=== PATIENT | male | born 1955 | race Caucasian/White ===

== ENCOUNTER → 2020-10-31 | Outpatient (CLI) | payer OTHER ==
--- NOTE | 2020-10-31 12:54 | REP ---
INDICATION: RT HYDROCELE. COMPARISON: None. TECHNIQUE: Real-time sonographic evaluation of scrotum and contents performed. FINDINGS: The testicles are normal in size and echotexture, right testicle measuring 4.4 x 3.1 x 3.1 cm and left testicle 4.6 x 2.5 x 2.8 cm. A punctate calcification is seen in the right testicle. There is no testicular mass or torsion, blood flow is seen in each testicle with duplex Doppler evaluation. There is a very large right hydrocele present. A small left hydrocele is noted. The right epididymis could not be visualized due to the large hydrocele. There is mildly increased Doppler color flow within the left testicle compared to the right which may indicate an element of orchitis. IMPRESSION: Very large right hydrocele. Small left hydrocele. Possible left orchitis. <Electronically signed by Oscar Curiel > 10/31/20 [id number]
== END ==
LOC: M RAD 12:08
PROVIDERS: ATTEND Urology
DX: N43.3 Hydrocele, unspecified (principal)

== ENCOUNTER → 2020-11-20 | Outpatient (CLI) | payer OTHER ==
[~2020-11-20] MED LIST: DIGO0.253; DILT30TA; ELIQ5TAB; ENTR1TAB7; FENO160T10; METF500T13; METO200T28; SIMV20TA22; SPIR-10
== END ==
LOC: M LABSMTC 11:22
PROVIDERS: ATTEND Anesthesiology
DX: Z01.818 Encounter for other preprocedural examination (principal); Z11.52 Encounter for screening for COVID-19

== ENCOUNTER 2020-11-24 06:11 | Day surgery (SDC) | payer OTHER ==
[~2020-11-24] VITALS: Ht 167.6 cm; Wt 78.0 kg
[~2020-11-24 06:11] MED LIST changes: +LIDOCAINE 1% MDV 20ML VIAL SQ PRN
[2020-11-24] MEDS ORDERED: LIDOCAINE 2% 100MG/5ML SDV (FOR ANES.) As Ordered ONE (07:07)
[2020-11-24] MEDS ORDERED: propofoL 200 MG/20 ML VIAL As Ordered ONE (07:07)
[2020-11-24] MEDS ORDERED: ROCURONIUM BROMIDE 50 MG/5 ML VIAL As Ordered ONE (07:07)
[2020-11-24] MEDS ORDERED: fentaNYL 100 MCG/2 ML INJECTION (J3010) As Ordered ONE (07:08)
[2020-11-24] MEDS ORDERED: MIDAZOLAM INJ 2MG/2ML VIAL (J2250 PER 1MG) As Ordered ONE (07:08)
[2020-11-24] MEDS ORDERED: LR 1,000 ML IV ONE (07:15)
[2020-11-24] MEDS ORDERED: ceFAZolin SOD 2 GM in IV 1 EA IV ONE (07:20)
[2020-11-24] MEDS ORDERED: BUPIVACAINE HCL 0.25% 10ML VIAL As Ordered ONE (07:23)
[2020-11-24] MEDS ORDERED: LIDOCAINE 2% MDV 20ML VIAL As Ordered ONE (07:23)
--- NOTE | 2020-11-24 07:28 | ROOPDOC ---
[facility] Report Of Operation Report of Operation DATE OF PROCEDURE: 11/24/20 PREPROCEDURE DIAGNOSES: [right hydrocele causing pain]. POSTPROCEDURE DIAGNOSES: [same]. PROCEDURE PERFORMED: [right hydrocelectomy, right orchidopexy]. SURGEON: [Cristine Kennedy, FLIGHT ENGINEER INSTRUCTOR: [none], ANESTHESIA: [spinal, sedation, local]. ESTIMATED BLOOD LOSS: Approximately [2] mL. COMPLICATIONS: [none]. REMARKS: [65yo wm with right hydrocele causing pain. Options discussed. Pt opted for hydrocelectomy. Risks discussed including infection, pain, bleeding, scarring, recurrence of hydrocele, testis atrophy, swelling, injury to normal tissue and others. No guarantees given. Informed consent obtained.]. FINDINGS: [large right hydrocele] SPECIMENS REMOVED: [hydrocele sac] PROCEDURE NOTE: . DESCRIPTION OF PROCEDURE: [Met with pt in preop area and again discussed surgery. Questions answered. Pt wished to proceed. Pt brought to OR. Spinal anesthesia secured. Sedation used. Supine position for surgery. Well padded. Obvious right hydrocele. Prep'd and draped in sterile fashion. Surgery done under iv antibiotic. Pt stopped blood thinners as instructed. Time out performed. Transverse right scrotal incision made and carried down using cautery. Right testis freed using blunt and sharp dissection. Testis delivered. Tunica vaginalis opened. Testis looked and felt fine. Appendix testis fulgurated. Hydrocele sac excised with cautery and handed off. Cut edges oversewn with running 2-0 Vicryl. Hemostasis secured. Once satisfied, an orchidopexy was performed. Medial, lateral and inferior Vicryl pexy stitches. Testis put back in its proper orientation. Incision closed using running Vicryl for dartos and running vertical mattress chromic for skin. Incision infiltrated with local. Field cleaned and dried. Gauze and net underwear. Pt left room in satisfactory condition. Counts correct.]. TIMOTHY KENNEDY MD Nov 24, 2020 07:28
[2020-11-24] MEDS ORDERED: HYDR-4514 PO (07:33)
[2020-11-24] MEDS ORDERED: CEPH750C PO (07:33)
[2020-11-24] MEDS ORDERED: KETOROLAC 60MG 2ML VIAL As Ordered ONE (08:09)
[2020-11-24] MEDS ORDERED: fentaNYL 100 MCG/2 ML INJECTION (J3010) IV PRN (09:40)
[2020-11-24] MEDS ORDERED: oxyCODONE 5MG TAB PO PRN (09:40)
[2020-11-24] MEDS ORDERED: PHENYLephrine 500MCG 5ML (100MCG/ML) SYRINGE IV PRN (09:40)
[2020-11-24] MEDS ORDERED: ONDANSETRON 4MG/2ML VIAL IV PRN (09:40)
[2020-11-24] MEDS ORDERED: LR 1,000 ML IV SCH ×2 (09:40)
[2020-11-24 15:25] VITALS: BP 130/88
== END 2020-11-24 15:25 | disposition home or self-care (01) ==
LOC: M SDC 06:11
PROVIDERS: ATTEND Urology
DX: N43.3 Hydrocele, unspecified (principal); N43.41 Spermatocele of epididymis, single; I48.91 Unspecified atrial fibrillation; D64.9 Anemia, unspecified; M10.9 Gout, unspecified; E11.9 Type 2 diabetes mellitus without complications; I25.2 Old myocardial infarction; Z79.899 Other long term (current) drug therapy; Z79.01 Long term (current) use of anticoagulants; Z79.84 Long term (current) use of oral hypoglycemic drugs
CPT/HCPCS: 54640; 55040; 88302; J0690; J1885; J2250